=== PATIENT | male | born 1995 | race Caucasian/White ===

== ENCOUNTER → 2019-05-13 | Outpatient (REF) | payer BC ==
[~2019-05-13] MED LIST: No Historical Meds
== END ==
LOC: M LAB REF 19:05
PROVIDERS: ATTEND Physician Assistant
DX: L02.11 Cutaneous abscess of neck (principal)

== ENCOUNTER 2020-05-23 13:51 | Emergency (ER) | payer OTHER ==
[~2020-05-23] VITALS: Ht 172.7 cm; Wt 70.7 kg
[2020-05-23 14:27] LABS: VENOUS BASE EXCESS -1.1 (-2.0-2.0); VENOUS HCO3 24.5 MEQ/L (23.0-27.0); VENOUS O2 SATURATION 87.3 % (60.0-80.0); VENOUS PARTIAL PRESSURE CO2 43.9 mmHg (38.0-50.0); VENOUS PARTIAL PRESSURE O2 53.8 mmHg (30.0-50.0); VENOUS PH 7.364 UNITS (7.330-7.430); VENOUS STANDARD HCO3 23.3 MEQ/L; VENOUS TOTAL CO2 25.8 MEQ/L (24.0-28.0)
[2020-05-23 14:53] LABS: HEMOGLOBIN A1c 12.1 %
[2020-05-23 15:01] LABS: APPEARANCE, URINE CLEAR (CLEAR); BACTERIA, URINE AUTO NEGATIVE (NEGATIVE); BILIRUBIN, URINE AUTO NEGATIVE (NEGATIVE); BLOOD, URINE BLOOD NEGATIVE (NEGATIVE); COLOR, URINE STRAW (YELLOW); GLUCOSE, URINE (UA) AUTO 3+ mg/dL (NEGATIVE); KETONE, URINE AUTO 1+ mg/dL (NEGATIVE); LEUKOCYTE ESTERASE, URINE AUTO NEGATIVE (NEGATIVE); MUCUS, URINE SMALL (NEGATIVE); NITRITE, URINE AUTO NEGATIVE (NEGATIVE); PROTEIN, URINE AUTO NEGATIVE (NEGATIVE); RBC, URINE AUTO 1 /HPF (0-3); SQUAMOUS EPITHELIAL CELL UR AU 0 /HPF (0-6); UROBILINOGEN, URINE AUTO 0.2 mg/dL (0.0-2.0); WBC, URINE AUTO 0 /HPF (0-3)
[2020-05-23] MEDS ORDERED: LEVEMIR (INSULIN DETEMIR) 1 UNITS/0.01ML SC ONE (15:45)
[2020-05-23 16:23] VITALS: BP 153/77
== END 2020-05-23 16:25 | disposition home or self-care (01) ==
LOC: M ED 13:51
DX: E11.65 Type 2 diabetes mellitus with hyperglycemia (principal); R19.7 Diarrhea, unspecified

== ENCOUNTER → 2020-05-23 | Outpatient (CLI) | payer OTHER ==
[2020-05-23 11:08] LABS: BASO % 0.6 % (0.0-1.0); EOS # 0.1 10^3/uL (0.0-0.5); HEMOGLOBIN 16.1 g/dl (13.5-17.5); LYMPH # 2.1 10^3/uL (1.5-5.0); LYMPH % 29.6 % (24.0-44.0); MEAN CORPUSCULAR HEMOGLOBIN 28.5 pg (27.0-33.0); MEAN CORPUSCULAR HGB CONC 34.3 g/dl (32.0-36.5); MEAN CORPUSCULAR VOLUME 83.3 fl (80.0-96.0); MONO # 0.9 10^3/uL (0.0-0.8); MONO % 13.1 % (2.0-8.0); NEUTROPHILS # 3.8 10^3/uL (1.5-8.5); PLATELET COUNT, AUTOMATED 304 10^3/uL (150-450); RED BLOOD COUNT 5.64 10^6/uL (4.30-6.10); WHITE BLOOD COUNT 7.1 10^3/uL (4.0-10.0)
[2020-05-23 11:40] LABS: BLOOD UREA NITROGEN 18 MG/DL (7-18); CALCIUM LEVEL 8.3 MG/DL (8.5-10.1); CARBON DIOXIDE LEVEL 27 MEQ/L (21-32); CHLORIDE LEVEL 103 MEQ/L (98-107); GLOMERULAR FILTRATION RATE > 60.0 (>60); GLUCOSE, FASTING 496 MG/DL (70-100); POTASSIUM SERUM 4.4 MEQ/L (3.5-5.1); SODIUM LEVEL 135 MEQ/L (136-145)
== END ==
LOC: M LAB 10:13
PROVIDERS: ATTEND Nurse Practitioner Family
DX: R19.7 Diarrhea, unspecified (principal)

== ENCOUNTER → 2020-05-24 | Outpatient (REF) | payer OTHER | LOC: M LAB REF 11:45 | PROVIDERS: ATTEND Emergency Medicine | DX: R19.7 Diarrhea, unspecified (principal) ==

== ENCOUNTER → 2020-05-25 | Outpatient (CLI) | payer OTHER ==
[2020-05-25 10:52] LABS: CHOLESTEROL RISK RATIO 5.166 (<5)
== END ==
LOC: M LAB 09:34
PROVIDERS: ATTEND Nurse Practitioner Family
DX: E11.65 Type 2 diabetes mellitus with hyperglycemia (principal)

== ENCOUNTER → 2020-05-26 | Outpatient (REF) | payer OTHER ==
[2020-05-26 18:19] LABS: THYROID STIMULATING HORMONE 1.68 uIU/ML (0.358-3.740)
== END ==
LOC: M PLALAB 16:47
PROVIDERS: ATTEND Internal Medicine Endocrinology, Diabetes & Metabolism
DX: E04.0 Nontoxic diffuse goiter (principal)

== ENCOUNTER → 2021-01-11 | Outpatient (REF) | payer OTHER ==
[2021-01-11 18:37] LABS: CREATININE, URINE 31.2 MG/DL; MALB URINE SIEMENS 6.3 MG/L; MAU/CREAT RATIO 20.1 MCG/MG (0.0-30.0)
== END ==
LOC: M LAB REF 16:53
PROVIDERS: ATTEND Nurse Practitioner Family
DX: E10.9 Type 1 diabetes mellitus without complications (principal)

== ENCOUNTER → 2022-07-07 | Outpatient (CLI) | payer OTHER | LOC: M WUC 12:40 | PROVIDERS: ATTEND Physician Assistant | DX: N52.9 Male erectile dysfunction, unspecified (principal) ==

== ENCOUNTER → 2022-09-23 | Outpatient (CLI) | payer OTHER ==
[2022-09-23 17:05] LABS: HEMATOCRIT 45.4 % (42.0-52.0); HEMOGLOBIN 15.6 g/dl (13.5-17.5); MEAN CORPUSCULAR HEMOGLOBIN 28.4 pg (27.0-33.0); MEAN CORPUSCULAR HGB CONC 34.4 g/dl (32.0-36.5); MEAN CORPUSCULAR VOLUME 82.7 fl (80.0-96.0); PLATELET COUNT, AUTOMATED 267 10^3/uL (150-450); RED BLOOD COUNT 5.49 10^6/uL (4.30-6.10); WHITE BLOOD COUNT 7.3 10^3/uL (4.0-10.0)
[2022-09-23 17:40] LABS: CREATININE, URINE 48.4 MG/DL
[2022-09-23 17:41] LABS: ALBUMIN 4.2 G/DL (3.2-5.2); ALKALINE PHOSPHATASE 88 U/L (46-116); ALT/SGPT 26 U/L (7.0-40); AST/SGOT 15 U/L (<34); BILIRUBIN,TOTAL 0.7 MG/DL (0.3-1.2); BLOOD UREA NITROGEN 17 MG/DL (9-23); CALCIUM LEVEL 9.2 MG/DL (8.5-10.1); CARBON DIOXIDE LEVEL 28 MMOL/L (20-31); CHLORIDE LEVEL 104 MMOL/L (98-107); CHOLESTEROL LEVEL 119 MG/DL (<200); CHOLESTEROL RISK RATIO 3.19 (<5); CREATININE FOR GFR 0.79 MG/DL (0.70-1.30); GLOMERULAR FILTRATION RATE > 60.0 (>60); GLUCOSE, FASTING 170 MG/DL (60-100); HDL CHOLESTEROL 37.3 MG/DL (>40); LDL CHOLESTEROL 45.1 MG/DL (<100); NON-HDL-C 81.7 MG/DL; SODIUM LEVEL 139 MMOL/L (136-145); TOTAL PROTEIN 6.9 G/DL (5.7-8.2); TRIGLYCERIDES LEVEL 183 MG/DL (<150)
[2022-09-23 17:42] LABS: MALB URINE SIEMENS < 3.0 MG/L; MAU/CREAT RATIO 6.1 MCG/MG (0.0-30.0); PROLACTIN 6.61 NG/ML (2.1-17.7); THYROID STIMULATING HORMONE 1.174 uIU/ML (0.55-4.78)
[2022-09-23 17:45] LABS: THYROID PEROXIDASE ANTIBODY < 28.0 U/ML (<60.0)
== END ==
LOC: M WUC 12:47
PROVIDERS: ATTEND Internal Medicine Endocrinology, Diabetes & Metabolism
DX: E10.65 Type 1 diabetes mellitus with hyperglycemia (principal); E04.0 Nontoxic diffuse goiter

== ENCOUNTER → 2024-05-09 | Outpatient (CLI) | payer OTHER ==
[2024-05-09 13:56] LABS: HEMATOCRIT 46.9 % (42.0-52.0); HEMOGLOBIN 15.8 g/dl (13.5-17.5); MEAN CORPUSCULAR HEMOGLOBIN 28.1 pg (27.0-33.0); MEAN CORPUSCULAR HGB CONC 33.7 g/dl (32.0-36.5); MEAN CORPUSCULAR VOLUME 83.3 fl (80.0-96.0); PLATELET COUNT, AUTOMATED 285 10^3/uL (150-450); RED BLOOD COUNT 5.63 10^6/uL (4.30-6.10); WHITE BLOOD COUNT 6.5 10^3/uL (4.0-10.0)
[2024-05-09 14:05] LABS: ALBUMIN 4.2 G/DL (3.2-5.2); ALKALINE PHOSPHATASE 90 U/L (40-129); ALT/SGPT 25 U/L (7.0-40); AST/SGOT 19 U/L (<34); BILIRUBIN,TOTAL 0.4 MG/DL (0.3-1.2); BLOOD UREA NITROGEN 16 MG/DL (9-23); CALCIUM LEVEL 9.3 MG/DL (8.5-10.1); CARBON DIOXIDE LEVEL 28 MMOL/L (20-31); CHLORIDE LEVEL 103 MMOL/L (98-107); CREATININE FOR GFR 0.71 MG/DL (0.70-1.30); GLOMERULAR FILTRATION RATE > 60.0 (>60); GLUCOSE, FASTING 227 MG/DL (60-100); SODIUM LEVEL 140 MMOL/L (136-145); TOTAL PROTEIN 7.3 G/DL (5.7-8.2)
[2024-05-09 14:06] LABS: THYROID STIMULATING HORMONE 1.124 uIU/ML (0.55-4.78)
[2024-05-09 14:24] LABS: MALB URINE SIEMENS < 3.0 MG/L
== END ==
LOC: M WUC 08:46
PROVIDERS: ATTEND Internal Medicine Endocrinology, Diabetes & Metabolism
DX: E10.65 Type 1 diabetes mellitus with hyperglycemia (principal)

== ENCOUNTER → 2025-02-26 | Outpatient (CLI) | payer BC ==
[2025-02-26 12:41] LABS: ESTIMATED AVERAGE GLUCOSE 154.0 MG/DL (60-110)
[2025-02-26 12:48] LABS: CREATININE, URINE 28.8 MG/DL; MALB URINE SIEMENS < 3.0 MG/L
[2025-02-26 12:49] LABS: ALT/SGPT 58 U/L (7.0-40); AST/SGOT 33 U/L (<34); CALCIUM LEVEL 9.9 MG/DL (8.5-10.1); CARBON DIOXIDE LEVEL 31 MMOL/L (20-31); CHLORIDE LEVEL 101 MMOL/L (98-107); CHOLESTEROL LEVEL 144 MG/DL (<200); CHOLESTEROL RISK RATIO 3.31 (<5); CREATININE FOR GFR 0.78 MG/DL (0.70-1.30); GLOMERULAR FILTRATION RATE > 90.0 (>60); LDL CHOLESTEROL 87.6 MG/DL (<100); NON-HDL-C 100.6 MG/DL; POTASSIUM SERUM 4.4 MMOL/L (3.5-5.1); SODIUM LEVEL 137 MMOL/L (136-145); TRIGLYCERIDES LEVEL 65 MG/DL (<150)
== END ==
LOC: M WUC 08:47
PROVIDERS: ATTEND Nurse Practitioner Family
DX: E10.9 Type 1 diabetes mellitus without complications (principal)